=== PATIENT | female | born 1950 | race Caucasian/White ===

== ENCOUNTER 2020-04-13 11:10 | Inpatient (IN) | payer MEDICARE, BC ==
[~2020-04-13] VITALS: Ht 170.2 cm; Wt 83.9 kg
--- NOTE | 2020-04-13 11:27 | NUR ---
Dr Hatch at the bedside for MSE.
[2020-04-13] MEDS ORDERED: LEVO50TA8 PO (11:28)
[2020-04-13] MEDS ORDERED: PARO25TA16 PO (11:28)
[2020-04-13 11:51] LABS: BASOPHILS # (AUTO) 0.1 K/uL (0.0-8.0); EOSINOPHILS # (AUTO) 0.1 K/uL (0.0-0.7); EOSINOPHILS % (AUTO) 2.1 % (0.0-7.0); HEMATOCRIT 39.2 % (31.2-41.9); HEMOGLOBIN 12.9 g/dL (10.9-14.3); LYMPHOCYTES # (AUTO) 1.2 K/uL (20.0-40.0); LYMPHOCYTES % (AUTO) 19.1 % (20.5-51.5); MEAN CORPUSCULAR HEMOGLOBIN 29.5 uug (24.7-32.8); MEAN CORPUSCULAR HGB CONC 33 g/dL (32.3-35.6); MEAN CORPUSCULAR VOLUME 89.4 fL (75.5-95.3); MONOCYTES # (AUTO) 0.4 K/uL (2.0-10.0); NEUTROPHILS # (AUTO) 4.5 K/uL (1.8-8.9); NEUTROPHILS % (AUTO) 70.8 % (38.5-71.5); PLATELET COUNT (AUTO) 282 K/uL (179-408); RED BLOOD CELL COUNT(AUTO) 4.39 MIL/uL (3.63-4.92); WHITE BLOOD COUNT (AUTO) 6.4 K/uL (3.8-11.8)
[2020-04-13 11:57] LABS: POTASSIUM 4.7 mmol/L (3.5-5.1)
[2020-04-13 12:13] LABS: BILIRUBIN,DIRECT 0.1 mg/dL (0.0-0.2); BILIRUBIN,TOTAL 0.6 mg/dL (0.2-1.0); TOTAL PROTEIN, SERUM 6.7 g/dL (6.4-8.2)
[2020-04-13 12:27] LABS: *BILIRUBIN,URIN NEGATIVE (NEGATIVE); *BLOOD, URINE NEGATIVE (NEGATIVE); *CLARITY,URINE CLOUDY (CLEAR); *COLOR,URINE YELLOW (YELLOW); *KETONES,URINE TRACE (NEGATIVE); *UROBILINOGEN,URINE 0.2 E.U./dl (NORMAL); LEUKOCYTE ESTERASE ,URINE 2+ (NEGATIVE); NITRITE, URINE NEGATIVE (NEGATIVE); UGLUCOSE NEGATIVE (NEGATIVE)
--- NOTE | 2020-04-13 12:32 | NUR ---
COVID 19 swab collected and LAB.
--- NOTE | 2020-04-13 12:34 | NUR ---
Dr Mcnulty spoke to nuerologist, DR Coelho.
[2020-04-13] MEDS ORDERED: Z GUARD REMEDY PASTE 57 GM TUBE TOP PRN (13:15)
[2020-04-13] MEDS ORDERED: ONDANSETRON 4 MG/2 ML VIAL IV PRN (13:15)
[2020-04-13] MEDS ORDERED: MAGNESIUM HYDROXIDE 30 ML LIQUID UDC PO PRN (13:15)
[2020-04-13] MEDS ORDERED: CEFTRIAXONE 1 G in IV DEXTROSE 5% 50 ML IV ONE (13:45)
[2020-04-13] MEDS ORDERED: CEFTRIAXONE 1 G VIAL ONE (13:47)
--- NOTE | 2020-04-13 14:50 | NUR ---
ADMITTED FROM HOME A 69 YO WHITE FEMALE WITH ADM DX OF UTI AND FREQUENT FALLS ALERT AND ORIENTED X3. N SS OF PAIN OR DISTRESS. ROUTINE ADM ASSESSMENT INITIATED . MD NOTIFIED OF ADMISSION. PLACE IN THE COVID UNIT PENDING TEST RESULTS
--- NOTE | 2020-04-13 15:21 | NUR ---
LOURDES VARGAS NOTIFIED, ADMISSION ORDERS GIVEN
[2020-04-13 15:30] VITALS: BP 130/57
[2020-04-13 15:37] VITALS: BP 130/57
[2020-04-13] MEDS: ACETAMINOPHEN 325 MG TABLET PO PRN ×2 (16:52→23:38)
[2020-04-13] MEDS: CEphaleXIN 500 MG CAPSULE PO SCH (16:52)
[2020-04-13] MEDS: IV NS 1000 ML 1,000 ML IV PRN (16:53)
[2020-04-13 17:24] LABS: RBC,URINE 0-3 /HPF (0-3)
[2020-04-13 17:25] LABS: BACTERIA,URINE MODERATE /HPF (NONE SEEN); SQUAMOUS EPITHELIAL CELL,UR FEW /HPF (NONE SEEN)
--- NOTE | 2020-04-13 18:19 | NUR ---
PATIENT STABLE, FOR POSSIBLE DISCHARGE IN AM AND TO FOLLOW-UP WITH NEURO MD IN [facility]. PATIENT NO REACTION FROM ANTIBIOTIC, AFEBRILE
--- NOTE | 2020-04-13 18:38 | NUR ---
NOTED NEGATIVE RESULTS FROM COVID 19. TEXTED LOURDES IF WE CAN OFF ISOLATION, AWAITING CALL BACK
--- NOTE | 2020-04-13 19:30 | NUR ---
Received patient lying in bed. AAOx4. In no acute distress. Denies any pain or SOB. Left AC IV site intact and patent. IVF infusing. NSR on tele at 67/min. Needs assessed and attended to. Safety measure initiated and call meng within reached.
[2020-04-13 20:03] VITALS: BP 120/64
[2020-04-14 00:33] VITALS: BP 128/61
[2020-04-14 04:06] VITALS: BP 117/64
[2020-04-14] MEDS: IV NS 1000 ML 1,000 ML IV PRN (06:12)
--- NOTE | 2020-04-14 06:23 | NUR ---
AAOx4. In no acute distress. Denies any further pain. No SOB. Left AC IV remains intact and patent. IVF infusing. NSR on tele at 62/min. Needs attended to and met. Safety measure maintained and call meng within reached.
[2020-04-14] MEDS ORDERED: PANTOPRAZOLE SODIUM 40 MG TABLET.DR PO SCH (07:00)
[2020-04-14 07:26] LABS: BASOPHILS # (AUTO) 0.1 K/uL (0.0-8.0); EOSINOPHILS # (AUTO) 0.2 K/uL (0.0-0.7); EOSINOPHILS % (AUTO) 2.3 % (0.0-7.0); HEMATOCRIT 36.1 % (31.2-41.9); LYMPHOCYTES # (AUTO) 1.4 K/uL (20.0-40.0); LYMPHOCYTES % (AUTO) 21.2 % (20.5-51.5); MEAN CORPUSCULAR HEMOGLOBIN 29.9 uug (24.7-32.8); MEAN CORPUSCULAR HGB CONC 33 g/dL (32.3-35.6); MEAN CORPUSCULAR VOLUME 89.8 fL (75.5-95.3); MONOCYTES # (AUTO) 0.5 K/uL (2.0-10.0); MONOCYTES % (AUTO) 7.1 % (0.0-11.0); NEUTROPHILS # (AUTO) 4.5 K/uL (1.8-8.9); NEUTROPHILS % (AUTO) 68.4 % (38.5-71.5); PLATELET COUNT (AUTO) 270 K/uL (179-408); RED BLOOD CELL COUNT(AUTO) 4.02 MIL/uL (3.63-4.92); WHITE BLOOD COUNT (AUTO) 6.6 K/uL (3.8-11.8)
[2020-04-14 07:43] LABS: MAGNESIUM 1.9 mg/dL (1.8-2.4); PHOSPHOROUS 3.9 mg/dL (2.5-4.9); POTASSIUM 3.9 mmol/L (3.5-5.1)
[2020-04-14] MEDS: CEphaleXIN 500 MG CAPSULE PO SCH ×2 (07:49→15:59)
--- NOTE | 2020-04-14 07:52 | NUR ---
resting comfortably denies any pain or sob. remains afebrile. sr on monitor. will continue keflex for uti
[2020-04-14 08:01] LABS: THYROID STIMULATING HORMONE 3.595 mIU/mL (0.358-3.740)
--- NOTE | 2020-04-14 08:31 | NUR ---
SEEN BY DR JENNINGS FOR CARDIAC EVAL SEE NOTES
[2020-04-14] MEDS ORDERED: LEVOTHYROXINE SODIUM 50 MCG TABLET PO SCH (09:00)
[2020-04-14] MEDS ORDERED: PAROXETINE HCL 10 MG TABLET PO SCH (09:00)
[2020-04-14 11:44] VITALS: BP 132/57
[2020-04-14] MEDS ORDERED: CEPH500C2 PO (11:59)
[2020-04-14] MEDS ORDERED: MAGN400O6 PO (11:59)
[2020-04-14] MEDS ORDERED: PANT40TA2 PO (11:59)
[2020-04-14] MEDS ORDERED: MENT71OI TOP (11:59)
[2020-04-14] MEDS ORDERED: ACET325T53 PO (11:59)
--- NOTE | 2020-04-14 12:01 | NUR ---
SEEN BY LOURDES VARGAS FOR FOLLOW-UP, NOTED HIP X-RAY RESULTS AND SAID PATIENT IS CLEARED FOR ARU. SYBIL NOTIFIED PER ARABELLA FOR EVAL
[2020-04-14 15:38] VITALS: BP 126/66
--- NOTE | 2020-04-14 16:32 | NUR ---
DISCHARGED TO [facility] FOR FURTHER THERAPY. REPORT GIVEN TO REHAB STAFF
== END 2020-04-14 16:30 | DRG 690 ==
LOC: ER 11:10 → TELE3 14:34
PROVIDERS: ADMIT Registered Nurse; ATTEND Registered Nurse
DX: N39.0 Urinary tract infection, site not specified (principal); G91.2 (Idiopathic) normal pressure hydrocephalus; R29.6 Repeated falls; Z98.2 Presence of cerebrospinal fluid drainage device; E66.9 Obesity, unspecified; E03.9 Hypothyroidism, unspecified; F32.9 Major depressive disorder, single episode, unspecified; F41.9 Anxiety disorder, unspecified; G62.9 Polyneuropathy, unspecified; G89.29 Other chronic pain; M17.11 Unilateral primary osteoarthritis, right knee; R53.1 Weakness; R55 Syncope and collapse; Z68.29 Body mass index [BMI] 29.0-29.9, adult; M25.551 Pain in right hip; M67.88 Other specified disorders of synovium and tendon, other site
CPT/HCPCS: 36415; 70030-TC; 70450; 71045; 73501; 73700; 83690; 83735; 84100; 84443; 85025; 87086; 93005; 93307; 93880; A4663; G0378; J0696; J3490; J7030; J7050

== ENCOUNTER 2020-04-14 13:27 | Inpatient (IN) | payer MEDICARE, BC ==
[~2020-04-14] VITALS: Ht 170.2 cm; Wt 80.3 kg
[~2020-04-14 13:27] MED LIST: ACET325T53 PO; CEPH500C2 PO; LEVO50TA8 PO; MAGN400O6 PO; MENT71OI TOP; PANT40TA2 PO; PARO25TA16 PO
[2020-04-14] MEDS ORDERED: Z GUARD REMEDY PASTE 57 GM TUBE TOP PRN ×2 (17:30→20:00)
[2020-04-14 18:07] VITALS: BP 131/65
--- NOTE | 2020-04-14 19:00 | NUR ---
Admitted this 69 y/o female from [facility] with diagnosis of generalized weakness and UTI. Report received from Machelle HORNE. Patient is alert, oriented x 3, not in any form of distress on room air. She denies any pain or discomfort at this time. Skin is intact with noted redness on left breastfold. Notified Deejay Guerra DNP regarding admission and need to reconcile medication and said Malika Guardado LEAD LEVEL DESIGNER will do it. Informed Malika Guardado LEAD LEVEL DESIGNER and said she will. Dr. Jensen made aware of admission. Routine admission care done. Oriented patient to staff, room and use of room devices with verbalized understanding. Needs attended to promptly. Call light and frequently used items placed within patient's reach. Safety measures maintained. Will endorse accordingly to warehouse supervisor 3rd shift nurse.
[2020-04-14] MEDS ORDERED: MAGNESIUM HYDROXIDE 30 ML LIQUID UDC PO PRN (20:00)
[2020-04-14 20:21] VITALS: BP 119/56
--- NOTE | 2020-04-14 21:39 | NUR ---
Admitted for UTI/frequent falls and UTI. AAOx3. Needs attended. VSS. No acute distress noted. Kept comfortable. Skin intact. Redness noted on left breastfold. Fall precautions maintained. Siderails up for safety. Call meng within reach. Incontinent of bowel and bladder. Kept clean and dry. No BM noted this shift. Will monitor patient.
[2020-04-15 04:00] VITALS: BP 143/70
[2020-04-15] MEDS: LEVOTHYROXINE SODIUM 50 MCG TABLET PO SCH (06:13)
[2020-04-15] MEDS: PANTOPRAZOLE SODIUM 40 MG TABLET.DR PO SCH (06:13)
--- NOTE | 2020-04-15 06:30 | NUR ---
End of the shift notes: Slept well throughout the night. No acute distress noted. VSS. Incontinent of urine x2. Kept clean and dry. Denies any pain nor any discomfort. Will monitor patient. All needs attended and met.
[2020-04-15] MEDS: CEphaleXIN 500 MG CAPSULE PO SCH ×2 (08:52→17:35)
[2020-04-15] MEDS: PAROXETINE HCL 20 MG TABLET PO SCH (08:53)
[2020-04-15 08:54] VITALS: BP 127/74
--- NOTE | 2020-04-15 09:30 | NUR ---
Patient awake, alert, oriented x3, not in any form of acute distress, on room air. She denies any pain or discomfort at this time. Due medications administered and tolerated well. Assisted patient with use of bedpan for BM and voiding. Patient up on the wheelchair with occupational therapist taken to the rehab gym. Will continue to monitor.
--- NOTE | 2020-04-15 12:44 | NUR ---
INTERDISCIPLINARY TEAM CONFERENCE
[2020-04-15 20:29] VITALS: BP 115/60
[2020-04-15] MEDS: ACETAMINOPHEN 325 MG TABLET PO PRN (20:54)
[2020-04-16 04:35] VITALS: BP 130/58
[2020-04-16] MEDS: LEVOTHYROXINE SODIUM 50 MCG TABLET PO SCH (06:01)
[2020-04-16] MEDS: PANTOPRAZOLE SODIUM 40 MG TABLET.DR PO SCH (06:01)
[2020-04-16 08:00] VITALS: BP 131/69
[2020-04-16] MEDS: CEphaleXIN 500 MG CAPSULE PO SCH ×2 (09:06→17:04)
[2020-04-16] MEDS: PAROXETINE HCL 20 MG TABLET PO SCH (09:07)
[2020-04-16 15:43] VITALS: BP 111/61
[2020-04-16] MEDS: ACETAMINOPHEN 325 MG TABLET PO PRN (15:53)
[2020-04-16 20:23] VITALS: BP 112/59
--- NOTE | 2020-04-16 21:12 | NUR ---
Received patient resting in bed, watching TV. AxO x3, No s/s of distress, no SOB noted, on room air. Patient denies any pain or discomfort at this time. Removed IV 20G LAC. All needs attended to, kept comfortable. Safety measures in place. Will continue to monitor through the night.
--- NOTE | 2020-04-17 05:59 | NUR ---
Patient slept well throughout the night. No acute distress noted. Denies any pain or any discomfort. All needs attended and met. Will continue plan of care, Endorse report to oncoming nurse.
[2020-04-17] MEDS: PANTOPRAZOLE SODIUM 40 MG TABLET.DR PO SCH (06:15)
[2020-04-17] MEDS: LEVOTHYROXINE SODIUM 50 MCG TABLET PO SCH (06:15)
[2020-04-17 06:41] VITALS: BP 110/54
[2020-04-17 08:00] VITALS: BP 123/58
[2020-04-17] MEDS: ACETAMINOPHEN 325 MG TABLET PO PRN (09:10)
[2020-04-17] MEDS: PAROXETINE HCL 20 MG TABLET PO SCH (09:10)
[2020-04-17] MEDS: CEphaleXIN 500 MG CAPSULE PO SCH ×2 (09:10→16:56)
[2020-04-17] MEDS ORDERED: ONDANSETRON ODT 4 MG TAB.RAPDIS SL PRN (12:00)
--- NOTE | 2020-04-17 14:23 | NUR ---
INDIVIDUALIZED PLAN OF CARE
[2020-04-17 16:42] VITALS: BP 109/48
--- NOTE | 2020-04-17 18:12 | NUR ---
patient is alert, oriented x3, no sob, resp even nonlabored, no changes noted during shift, participated in rehab, tolerated well.
--- NOTE | 2020-04-17 19:35 | NUR ---
Awake, alert and orient x 3, in bed, watching TV at this time. Denies any pain/discomforts. No s/s of respiratory distress. Safety measures and fall prevention maintained. Continue care as planned.
[2020-04-17 19:36] VITALS: BP 106/46
[2020-04-18 05:20] VITALS: BP 91/53
[2020-04-18] MEDS: PANTOPRAZOLE SODIUM 40 MG TABLET.DR PO SCH (06:06)
[2020-04-18] MEDS: LEVOTHYROXINE SODIUM 50 MCG TABLET PO SCH (06:06)
--- NOTE | 2020-04-18 06:49 | NUR ---
Shift End Report: Slept good. No complaint presented all night. All needs attended and met. Continue current rehab plan of care.
[2020-04-18] MEDS: PAROXETINE HCL 20 MG TABLET PO SCH (08:16)
[2020-04-18] MEDS: CEphaleXIN 500 MG CAPSULE PO SCH ×2 (08:16→17:38)
[2020-04-18 08:51] VITALS: BP 124/64
--- NOTE | 2020-04-18 11:30 | NUR ---
Patient alert, oriented x 3, not in any form of distress, on room air, sitting on the wheelchair. Assisted patient to the toilet for BM and voiding. Morning due medications administered and tolerated well. Needs attended to promptly. Call light and frequently used items placed within patient's reach. Safety measures maintained.
[2020-04-18 16:49] VITALS: BP 116/54
[2020-04-18 20:12] VITALS: BP 116/58
[2020-04-18] MEDS: ACETAMINOPHEN 325 MG TABLET PO PRN (20:19)
--- NOTE | 2020-04-19 04:20 | NUR ---
Received patient in bed, AAO x4. No acute distress or SOB was noted. On room air. Complained of headache,Tylenol administered and effective. Physical assessment done. All needs attended promptly. Safety measures maintained. Fall prevention maintained. Bed in lock position, Side rails up x2 for safety. Continue to monitor and will endorse to oncoming nurse accordingly.
[2020-04-19 05:08] VITALS: BP 118/67
[2020-04-19] MEDS: LEVOTHYROXINE SODIUM 50 MCG TABLET PO SCH (06:33)
[2020-04-19] MEDS: PANTOPRAZOLE SODIUM 40 MG TABLET.DR PO SCH (06:33)
[2020-04-19] MEDS: PAROXETINE HCL 20 MG TABLET PO SCH (08:01)
[2020-04-19 11:50] VITALS: BP 123/58
--- NOTE | 2020-04-19 15:50 | NUR ---
Received patient awake in bed in stable condition. not in distress. Patient continue participates in therapy for increase strenght and therapeutic exercises. Patient assisted to bathroom with walker. unsteady gait noted. no complaint of pain/discomfort noted. not in distress. will continue monitor
[2020-04-19 16:12] VITALS: BP 121/49
[2020-04-19 20:18] VITALS: BP 110/46
--- NOTE | 2020-04-19 21:32 | NUR ---
Resting in bed upon rounds. AAOx4 OOB to the BR with walker with moderate assist. Voiding well. Uses bedpan at night. Fall precautions maintained. Call meng within reach. Needs attended. VSS. In stable condition. No complaints presented during the shift. Will monitor patient.
[2020-04-20 04:12] VITALS: BP 125/56
[2020-04-20] MEDS: PANTOPRAZOLE SODIUM 40 MG TABLET.DR PO SCH (06:08)
[2020-04-20] MEDS: LEVOTHYROXINE SODIUM 50 MCG TABLET PO SCH (06:09)
--- NOTE | 2020-04-20 06:26 | NUR ---
End of shift notes: AAOx3-4 Forgetful at times. Needs attended. Slept well. Patient has some periods of incontinence last night. Kept clean and dry. No BM noted. Will monitor. No complaints or discomfort noted. VSS
[2020-04-20] MEDS: PAROXETINE HCL 20 MG TABLET PO SCH (09:02)
[2020-04-20 10:05] VITALS: BP 127/50
[2020-04-20 15:58] VITALS: BP 133/55
[2020-04-20 20:00] VITALS: BP 118/51
--- NOTE | 2020-04-20 20:00 | NUR ---
Received patient resting bed watching Tv. Axox3. Denies any pain/discomforts. No s/s of respiratory distress. Safety measures and fall prevention maintained. Continue care as planned.
[2020-04-21 04:00] VITALS: BP 111/54
[2020-04-21] MEDS: PANTOPRAZOLE SODIUM 40 MG TABLET.DR PO SCH (06:19)
[2020-04-21] MEDS: LEVOTHYROXINE SODIUM 50 MCG TABLET PO SCH (06:19)
[2020-04-21 08:00] VITALS: BP 116/59
[2020-04-21] MEDS: PAROXETINE HCL 20 MG TABLET PO SCH (08:43)
[2020-04-21 16:00] VITALS: BP 114/57
--- NOTE | 2020-04-21 19:50 | NUR ---
Sleeping during initial rounds. No s/s of respiratory distress noted. Safety measures and fall prevention observed. Continue care as planned.
[2020-04-21 21:00] VITALS: BP 93/57
[2020-04-22 04:00] VITALS: BP 127/57
--- NOTE | 2020-04-22 06:11 | NUR ---
Shift End Report: Slept well. No complaint presented. All needs attended and met. No significant even reported. Continue current rehab plan of care. VS stable.
[2020-04-22] MEDS: PANTOPRAZOLE SODIUM 40 MG TABLET.DR PO SCH (06:25)
[2020-04-22] MEDS: LEVOTHYROXINE SODIUM 50 MCG TABLET PO SCH (06:25)
[2020-04-22] MEDS: PAROXETINE HCL 20 MG TABLET PO SCH (08:25)
[2020-04-22 09:20] VITALS: BP 126/59
--- NOTE | 2020-04-22 12:43 | NUR ---
INTERDISCIPLINARY TEAM CONFERENCE
[2020-04-22] MEDS ORDERED: TRIAMCINOLONE ACETONIDE 40 MG/1 ML VIAL IJ ONE (13:15)
[2020-04-22] MEDS ORDERED: LIDOCAINE-MPF 1% 5 ML AMPUL MC PRN (13:15)
--- NOTE | 2020-04-22 13:51 | NUR ---
S/P right knee intraarticular injection by Dr. Jensen at this time. No noted bleeding on the injection site. Patient denies any pain or discomfort. Will continue to monitor.
[2020-04-22 15:47] VITALS: BP 133/62
[2020-04-22 20:58] VITALS: BP 105/54
--- NOTE | 2020-04-22 23:14 | NUR ---
awake upon initial rounds. AAOx3. No acute distress noted. VSS. Kept comfortable. Needs attended. Continent of bowel and bladder. BM today. Denies any pain nor any discomfort. Will monitor patient.
[2020-04-23 05:19] VITALS: BP 131/65
[2020-04-23] MEDS: LEVOTHYROXINE SODIUM 50 MCG TABLET PO SCH (06:20)
[2020-04-23] MEDS: PANTOPRAZOLE SODIUM 40 MG TABLET.DR PO SCH (06:20)
--- NOTE | 2020-04-23 06:24 | NUR ---
End of shift notes: Slept well throughout the shift. Incontinent of bowel and bladder. No BM today, Kept clean and dry. All needs attended and met. VSS. Will monitor patient.
[2020-04-23 07:04] LABS: HEMATOCRIT 39.6 % (31.2-41.9); HEMOGLOBIN 13.1 g/dL (10.9-14.3); LYMPHOCYTES # (AUTO) 0.6 K/uL (20.0-40.0); LYMPHOCYTES % (AUTO) 7.3 % (20.5-51.5); MEAN CORPUSCULAR HEMOGLOBIN 29.6 uug (24.7-32.8); MEAN CORPUSCULAR HGB CONC 33 g/dL (32.3-35.6); MEAN CORPUSCULAR VOLUME 89.3 fL (75.5-95.3); MONOCYTES # (AUTO) 0.1 K/uL (2.0-10.0); MONOCYTES % (AUTO) 1.6 % (0.0-11.0); NEUTROPHILS # (AUTO) 7.2 K/uL (1.8-8.9); NEUTROPHILS % (AUTO) 91.1 % (38.5-71.5); PLATELET COUNT (AUTO) 288 K/uL (179-408); RED BLOOD CELL COUNT(AUTO) 4.43 MIL/uL (3.63-4.92); WHITE BLOOD COUNT (AUTO) 7.9 K/uL (3.8-11.8)
[2020-04-23 07:23] LABS: BILIRUBIN,TOTAL 0.3 mg/dL (0.2-1.0); MAGNESIUM 2.3 mg/dL (1.8-2.4); PHOSPHOROUS 3.8 mg/dL (2.5-4.9); POTASSIUM 4.6 mmol/L (3.5-5.1)
[2020-04-23 08:00] VITALS: BP 130/69
[2020-04-23] MEDS: PAROXETINE HCL 20 MG TABLET PO SCH (08:55)
[2020-04-23] MEDS: ACETAMINOPHEN 325 MG TABLET PO PRN (09:00)
--- NOTE | 2020-04-23 10:45 | NUR ---
Patient is AAO x 3. IN NO acute distress. No complains of pain. Due morning meds administered. Vital signs stable for patient. Patient on PT/OT therapy. Skin kept clean and dry. Needs attended, safety measures in place, call light left at bed side and will continue with care.
[2020-04-23 15:38] VITALS: BP 111/51
--- NOTE | 2020-04-23 18:31 | NUR ---
Patient in stable condition, no complains of pain throughout shift. Vital signs stable. Needs attended and met will continue with care.
[2020-04-23 21:20] VITALS: BP 111/58
--- NOTE | 2020-04-23 21:31 | NUR ---
Received pt resting in bed. AAO x3-4. No acute distress noted. Denies pain/ discomfort. Safety measures maintained. Call light and personal items within reach. Will continue to monitor.
[2020-04-24 05:35] VITALS: BP 125/53
[2020-04-24] MEDS: PANTOPRAZOLE SODIUM 40 MG TABLET.DR PO SCH (06:01)
[2020-04-24] MEDS: LEVOTHYROXINE SODIUM 50 MCG TABLET PO SCH (06:01)
[2020-04-24 08:00] VITALS: BP 116/54
[2020-04-24] MEDS: PAROXETINE HCL 20 MG TABLET PO SCH (09:26)
[2020-04-24] MEDS: ACETAMINOPHEN 325 MG TABLET PO PRN (09:31)
[2020-04-24 16:00] VITALS: BP 112/51
[2020-04-24 20:44] VITALS: BP 110/49
--- NOTE | 2020-04-24 21:04 | NUR ---
Received pt resting in bed and watching tv. AAO x3-4. No acute distress noted. Denies pain/ discomfort. Safety measures maintained. Call light and personal items within reach. Will continue to monitor.
[2020-04-25 05:33] VITALS: BP 114/43
[2020-04-25] MEDS: LEVOTHYROXINE SODIUM 50 MCG TABLET PO SCH (06:04)
[2020-04-25] MEDS: PANTOPRAZOLE SODIUM 40 MG TABLET.DR PO SCH (06:04)
[2020-04-25 08:00] VITALS: BP 138/55
[2020-04-25] MEDS: PAROXETINE HCL 20 MG TABLET PO SCH (09:08)
[2020-04-25 16:38] VITALS: BP 114/52
--- NOTE | 2020-04-25 17:19 | NUR ---
Received patient awake in bed in stable condition. Patient no complaint of pain/discomfort during rounds. Patient ongoing therapy for therapeutic exercises and participation with ADL. not in distress. Patient seen and examined by MD Walters. will continue monitor
[2020-04-25 20:00] VITALS: BP 107/47
[2020-04-26 05:02] VITALS: BP 126/62
--- NOTE | 2020-04-26 05:06 | NUR ---
Received patient resting in bed watching TV. Axox3-4. Denies any pain/discomforts. No s/s of respiratory distress.Patient slept well throughout the night. No acute distress noted. Safety measures and fall prevention maintained. Call light and personal items within reach All needs attended and met. Will continue plan of care, Endorse report to oncoming nurse.
[2020-04-26] MEDS: LEVOTHYROXINE SODIUM 50 MCG TABLET PO SCH (06:07)
[2020-04-26] MEDS: PANTOPRAZOLE SODIUM 40 MG TABLET.DR PO SCH (06:07)
[2020-04-26 08:00] VITALS: BP 126/53
[2020-04-26] MEDS: PAROXETINE HCL 20 MG TABLET PO SCH (08:39)
[2020-04-26 16:00] VITALS: BP 107/52
--- NOTE | 2020-04-26 19:30 | NUR ---
Received patient awake, alert and verbally responsive, HOB elevated, watching TV at this time. Denies any pain/discomforts. No s/s of respiratory distress. Safety measures and fall prevention observed. Continue care as planned.
[2020-04-26 20:00] VITALS: BP 120/63
[2020-04-27 04:00] VITALS: BP 131/65
--- NOTE | 2020-04-27 05:18 | NUR ---
Shift End Report: Slept well. No complaint presented all night. All needs attended and met. No significant event reported all night. Continue current rehab plan of care. VS stable.
[2020-04-27] MEDS: PANTOPRAZOLE SODIUM 40 MG TABLET.DR PO SCH (06:19)
[2020-04-27] MEDS: LEVOTHYROXINE SODIUM 50 MCG TABLET PO SCH (06:20)
[2020-04-27 07:30] VITALS: BP 119/53
[2020-04-27] MEDS: PAROXETINE HCL 20 MG TABLET PO SCH (09:03)
[2020-04-27] MEDS: ACETAMINOPHEN 325 MG TABLET PO PRN (10:12)
[2020-04-27 15:14] VITALS: BP 111/49
--- NOTE | 2020-04-27 15:28 | NUR ---
PATIENT IS ALERT, ORIENTED X3, VERBALLY RESPONSIVE, NO SOB,RESP EVEN NONLABORED,SKIN WARM AND DRY TO TOUCH, NO SKIN ISSUES NOTED, PATIENT IS ONE PERSON ASSIST WITH ADLS, AMBULATES WITH [facility], WITH ASSIST USUALLY WITH PHYSICAL THERAPY, PATIENT IS DISCHARGED HOME WITH [facility], PER ACCOUNTS RECEIVABLE ASSISTANT, PATIENT HAS CAREGIVER FOR HER MOTHER AND THAT CAREGIVER WILL HELP PATIENT WELL, DISCHARGE INSTRUCTIONS GIVEN TO PATIENT, FUTURE APPOINTMENTS EXPLAINED TO PATIENT AND INCLUDED IN THE ENVELOP, PATIENT VERBALIZED UNDERSTANDING OF IT, BELONGINGS ARE ACCOUNTED AND SIGNED, ID REMOVED, DRESSED UP PATIENT IN HER OWN CLOTHES, AND PICKED UP BY [facility], PATIENT STATED SHE DOES NOT NEED PRESCRIPTION, SHE HAS MEDICATIONS AT HOME.
== END 2020-04-27 15:28 | disposition home health service (06) | DRG 57 ==
PROVIDERS: ADMIT Physical Medicine & Rehabilitation Pain Medicine; ATTEND Physical Medicine & Rehabilitation Pain Medicine
DX: G91.2 (Idiopathic) normal pressure hydrocephalus (principal); N39.0 Urinary tract infection, site not specified; D68.59 Other primary thrombophilia; R53.1 Weakness; E03.9 Hypothyroidism, unspecified; E66.9 Obesity, unspecified; S70.01XD Contusion of right hip, subsequent encounter; X58.XXXD Exposure to other specified factors, subsequent encounter; F32.9 Major depressive disorder, single episode, unspecified; F41.9 Anxiety disorder, unspecified; G93.89 Other specified disorders of brain; M17.11 Unilateral primary osteoarthritis, right knee; R29.6 Repeated falls; Z91.81 History of falling; Z98.2 Presence of cerebrospinal fluid drainage device; R73.03 Prediabetes; M25.551 Pain in right hip; R41.89 Other symptoms and signs involving cognitive functions and awareness; B96.89 Other specified bacterial agents as the cause of diseases classified elsewhere
CPT/HCPCS: 36415; 83735; 84100; 85025; J3301; J3490